=== PATIENT | male | born 1940 | race African-American/Black ===

== ENCOUNTER 2023-07-15 11:18 | Emergency (ER) | payer MEDICARE ==
[~2023-07-15] VITALS: Ht 188 cm; Wt 82.2 kg
[2023-07-15] MEDS ORDERED: KETOROLAC TROMETHAMINE 60 MG/2 ML VIAL IM STA (11:40)
[2023-07-15] MEDS ORDERED: VARENICLINE TART1 MG (12:01)
[2023-07-15] MEDS ORDERED: TIZANIDINE HCL4 M1 PO (12:01)
[2023-07-15] MEDS ORDERED: TRADJENTA5 MG (12:01)
[2023-07-15] MEDS ORDERED: GLIPIZIDE ER5 MG PO (12:01)
[2023-07-15] MEDS ORDERED: HYDROCHLOROTH12.5 MG PO (12:01)
[2023-07-15] MEDS ORDERED: VASOTEC10 M1 PO (12:01)
[2023-07-15] MEDS ORDERED: SIMVASTATIN20 MG PO (12:01)
[2023-07-15] MEDS ORDERED: TURMERIC500 M1 (12:01)
[2023-07-15] MEDS ORDERED: KETOROLAC TROMETHAMINE 60 MG/2 ML VIAL ONE (12:06)
[2023-07-15] MEDS ORDERED: ONDANSETRON ODT4 MG PO (12:59)
[2023-07-15] MEDS ORDERED: PREDNISONE20 MG PO (12:59)
[2023-07-15] MEDS ORDERED: HYDROCODON-ACE1 EA11 PO (13:01)
[2023-07-15 13:17] VITALS: O2SAT 100
== END 2023-07-15 13:17 | disposition home or self-care (01) ==
LOC: FSED 11:38
DX: M25.511 Pain in right shoulder (principal); M54.12 Radiculopathy, cervical region; E11.40 Type 2 diabetes mellitus with diabetic neuropathy, unspecified; I10 Essential (primary) hypertension; E78.5 Hyperlipidemia, unspecified; F17.210 Nicotine dependence, cigarettes, uncomplicated; Z85.51 Personal history of malignant neoplasm of bladder
CPT/HCPCS: 72125; 73030; 93005; 96372; 99284; J1885